=== PATIENT | male | born 1945 | race Caucasian/White ===

== ENCOUNTER 2018-05-31 09:14 | Observation (INO) | payer BC, MEDICARE ==
[2018-05-31] MEDS ORDERED: NS 0.9% 1000 ML* 1,000 ML IV ONE (09:47)
--- NOTE | 2018-05-31 10:00 | ED ---
Syncope/Near Syncope - HPI Summary HPI Summary: This patient is a 73 year old M presenting to [facility] accompanied by his with a chief complaint of a syncopal episode that occurred this morning at 0100. He states he does not recall the whole event but got up to use the bathroom. He is unsure how long he was out but he came to he was unsure why he was on the ground. He then went back to bed and believed he dreamed the episode occurred until his noticed the broken cabinet door in the morning that the patient must have hit as he fell. The patient rates the pain 2/10 in severity. Patient reports achy neck pain since yesterday; he had a hockey accident a week ago and has persistent left shoulder pain. He states he was seen by a medical provider and cleared without any imaging. He also c/o pain over the left eye with bruising that is new to this episode. Patient denies CP and SOB. Pt is not on blood thinners and his tetanus is UTD. - History Of Current Complaint Chief Complaint: EDSyncope Time Seen by Provider: 05/31/18 09:40 Hx Obtained From: Patient Onset/Duration: Resolved Timing: Intermittent Episode Lasting Context: Unwitnessed Activity At Onset: Other Associated Head Trauma: Yes Alleviating Factor(s): Spontaneous Resolution Associated Signs And Symptoms: Negative - SOB, CP - Allergies/Home Medications Allergies/Adverse Reactions: Allergies Allergy/AdvReac Type Severity Reaction Status Date / Time No Known Allergies Allergy Verified 05/31/18 09:21 Home Medications: Home Medications Albuterol HFA INHALER* [Ventolin HFA Inhaler*] 2 puff INH Q2HR PRN 05/31/18 [ History Confirmed 05/31/18] Fluoride (Sodium) [Prevident] 1 dose PO SEE INSTRUCTIONS 05/31/18 [History Confirmed 05/31/18] PMH/Surg Hx/FS Hx/Imm Hx Endocrine/Hematology History: Denies: Hx Diabetes Cardiovascular History: Denies: Hx Hypertension Respiratory History: Reports: Hx Asthma History: Denies: Hx Renal Disease Sensory History: Reports: Hx Hearing Problem Infectious Disease History: No Infectious Disease History: Denies: Traveled Outside the [place] in Last 30 Days - Family History Known Family History: Positive: Hypertension - Social History Lives: With Family Alcohol Use: None Substance Use Type: Reports: None Smoking Status (MU): Never Smoked Tobacco Review of Systems Positive: Other - fall Negative: Chest Pain Negative: Shortness Of Breath Positive: Myalgia - L neck and shoulder Positive: Bruising, Other - abrasion Positive: Syncope All Other Systems Reviewed And Are Negative: Yes Physical Exam - Summary Physical Exam Summary: GENERAL: Patient is a well-developed and nourished M who is lying comfortable in the stretcher. Patient is not in any acute respiratory distress. HEAD AND FACE: Normocephalic EYES: PERRLA, EOMI x 2. Periorbital ecchymosis on the left. There two abrasions to the fore head. One on the left and one on the right EARS: Hearing grossly intact. MOUTH: Oropharynx within normal limits. NECK: Supple, trachea is midline, no adenopathy, no JVD, no carotid bruit. CHEST: Symmetric, no tenderness at palpation LUNGS: Clear to auscultation bilaterally. No wheezing or crackles. CVS: Regular rate and rhythm, S1 and S2 present, no murmurs or gallops appreciated. ABDOMEN: Soft, non-tender. Bowel sounds are normal. No abdominal abnormal pulsations. EXTREMITIES: Full ROM in all major joints, no edema, no cyanosis or clubbing. NEURO: Alert and oriented x 3. No acute neurological deficits. Speech is normal and follows commands. SKIN: Dry and warm Neuro exam extended: Cranial nerves II-XII grossly intact, no dysmetria finger to nose, nml heel to chun Triage Information Reviewed: Yes Vital Signs On Initial Exam: Initial Vitals Temp Pulse Resp BP Pulse Ox 97.9 F 63 16 130/72 98 05/31/18 09:17 05/31/18 09:17 05/31/18 09:17 05/31/18 09:17 05/31/18 09:17 Vital Signs Reviewed: Yes - [place] Coma Scale Best Eye Response: 4 - Spontaneous Best Motor Response: 6 - Obeys Commands Best Verbal Response: 5 - Oriented Coma Scale Total: 15 Diagnostics - Vital Signs Vital Signs Temp Pulse Resp BP Pulse Ox 05/31/18 09:17 97.9 F 63 16 130/72 98 - Laboratory Result Diagrams: 05/31/18 10:00 05/31/18 10:00 Lab Statement: Any lab studies that have been ordered have been reviewed, and results considered in the medical decision making process. - Radiology CXR Radiology Interpretation Completed By: Radiologist Summary of Radiographic Findings: no active cardiopulmonary disease. ED physician has reviewed this radiology report. Shoulde Xray Radiology Interpretation Completed By: Radiologist Summary of Radiographic Findings: OSTEOARTHRITIS. NO ACUTE OSSEOUS INJURY. IF SYMPTOMS PERSIST, RECOMMEND REPEAT IMAGING. ED physician has reviewed this radiology report. Shoulder Xray Radiology Interpretation Completed By: Radiologist Summary of Radiographic Findings: OSTEOARTHRITIS. NO ACUTE OSSEOUS INJURY. IF SYMPTOMS PERSIST, RECOMMEND REPEAT IMAGING. ED physician has reviewed this radiology report. - CT CT Brain CT Interpretation Completed By: Radiologist Summary of CT Findings: NO ACUTE INTRACRANIAL PATHOLOGY. ED physician has reviewed this radiology report. CT Cspine CT Interpretation Completed By: Radiologist Summary of CT Findings: 1. NO EVIDENCE FOR FRACTURE. 2. MILD RETROLISTHESIS AT THE C4-C5 LEVEL WHICH IS LIKELY DEGENERATIVE IN ORIGIN. 3. MILD TO MODERATE CERVICAL SPONDYLOSIS. ED physician has reviewed this radiology report. - EKG 1004 Cardiac Rate: Bradycardia EKG Rhythm: Sinus Bradycardia - at 55 BPM Summary of EKG Findings: early R wave transition in V2 Course/Dx Assessment/Plan: This patient is a 73 year old M presenting to [facility] accompanied by his with a chief complaint of a syncopal episode that occurred this morning at 0100. An EKG reveals megan 55 BPM early r wave transition in V2 1004. CXR reveals, per radiologist, no active cardiopulmonary disease. Shoulder Xray shows, OSTEOARTHRITIS. NO ACUTE OSSEOUS INJURY. IF SYMPTOMS PERSIST, RECOMMEND REPEAT IMAGING. CT Brain shows, NO ACUTE INTRACRANIAL PATHOLOGY. CT C-spine shows, per radiologist, 1. NO EVIDENCE FOR FRACTURE. 2. MILD RETROLISTHESIS AT THE C4-C5 LEVEL WHICH IS LIKELY DEGENERATIVE IN ORIGIN. 3. MILD TO MODERATE CERVICAL SPONDYLOSIS. ED physician has reviewed this radiology report. Bloodwork showed TSH of 34. Patient will be admitted for syncope work up. We discussed patient care with Dr Stern and she has accepted the patient for admission. The patient is agreeable with this plan. - Diagnoses Provider Diagnoses: Syncope - Physician Notifications Discussed Care of Patient With: Adriana Stern Time Discussed With Above Provider: 12:39 Instructed by Provider To: Admit As Inpatient Discharge - Sign-Out/Discharge Documenting (check all that apply): Patient Departure - Discharge Plan Condition: Stable Disposition: ADMITTED TO [facility] - Billing Disposition and Condition Condition: STABLE Disposition: Admitted to [facility] - Attestation Statements Document Initiated by Scribe: Yes Documenting Scribe: Aquilino Zhou Provider For Whom Felipaibe is Documenting (Include Credential): Reddy Up MD Scribe Attestation: IAquilino , scribed for Reddy Up MD on 05/31/18 at 1725. Scribe Documentation Reviewed: Yes Provider Attestation: The documentation as recorded by the Aquilino suarez accurately reflects the service I personally performed and the decisions made by me, Reddy Up MD Status of Scribe Document: Viewed
[2018-05-31 10:07] LABS: ABS Basophils 0 10^3/ul (0-0.2); ABS Eosinophils 0.5 10^3/ul (0-0.6); ABS Lymphocytes 1.2 10^3/ul (1.0-4.8); ABS Monocytes 0.9 10^3/ul (0-0.8); ABS Neutrophils 4.9 10^3/ul (1.5-7.7); ABS Nucleated RBC 0 10^3/ul; Eosinophil % 6.1 %; Hematocrit 43 % (42-52); Hemoglobin 14.8 g/dl (14.0-18.0); Lymphocyte % 16.4 %; Mean Corpuscular HGB Conc 34 g/dl (31-36); Mean Corpuscular Hemoglobin 32 pg (27-31); Mean Corpuscular Volume 92 fL (80-94); Mean Platelet Volume 7.4 fL (7.4-10.4); Nucleated Red Blood Cells % 0; Platelet Count 243 10^3/ul (150-450); Red Blood Count 4.66 10^6/ul (4.00-5.40); Red Cell Distribution Width 14 % (10.5-15); White Blood Count 7.6 10^3/ul (3.5-10.8)
[2018-05-31 10:18] LABS: INR 0.96 (0.77-1.02)
[2018-05-31 10:27] LABS: EGFR Non-African American 73.5 (>60)
[2018-05-31 13:22] LABS: Urine Appearance Clear; Urine Blood Negative (Negative); Urine Color Yellow; Urine Ketones Trace (Negative); Urine Protein Negative (Negative); Urine Specific Gravity 1.011 (1.010-1.030); Urine Urobilinogen Negative (Negative)
[2018-05-31] MEDS ORDERED: Acetaminophen TAB* 325 MG PO PRN (14:19)
[2018-05-31] MEDS ORDERED: Enoxaparin(*) 40 MG/0.4 ML SYR SUBCUT SCH (15:00)
--- NOTE | 2018-05-31 15:50 | ECHO ---
Patient: JIE VEGA [facility] Rec#: [id number] : 1945 Date: 05/31/2018 Age: 73y Height: 182 cm / 71.7 in Weight: 88.5 kg / 195.1 lbs Sex: M BSA: 2.1 Room#: [id number] Admit Date#: 05/31/2018 Type: Inpatient Referring: Maeve Reynolds Reading: Mikel Faulkner DO Executive Personal Assistant: Elizabeth Vazquez RDCS CC: Ed Grady MD Transthoracic Echocardiogram Indication: Syncope BP: 116/81 HR: 66 Rhythm: NSR Findings History: Asthma Technical Comments: The study quality is fair. Completed at 1545. Left Ventricle: The left ventricular chamber size is normal. Mild concentric left ventricular hypertrophy is observed. Global left ventricular wall motion and contractility are within normal limits. There is normal left ventricular systolic function. The estimated ejection fraction is 55-60%. There is no consistent Doppler evidence of clinically significant diastolic dysfunction. Left Atrium: The left atrial chamber size is normal. Right Ventricle: The right ventricular chamber size and systolic function are within normal limits. Right Atrium: The right atrium appears normal. The right atrium is mildly dilated. Aortic Valve: The aortic valve is trileaflet. The aortic valve leaflets are mildly thickened. There is aortic annular calcification.that is mild There is a trace of aortic regurgitation. There is no evidence of aortic stenosis. Mitral Valve: The mitral valve leaflets are mildly thickened. There is a trace of mitral regurgitation. There is no evidence of mitral stenosis. Tricuspid Valve: The tricuspid valve leaflets are normal. There is trace to mild tricuspid regurgitation. No pulmonary hypertension is noted. There is no tricuspid stenosis. Pulmonic Valve: The pulmonic valve appears normal. There is a trace pulmonic regurgitation. There is no pulmonic stenosis. Pericardium: There is no significant pericardial effusion. Aorta: There is no dilatation of the ascending aorta. There is no dilatation of the aortic arch. The aortic root is normal in size. Pulmonary Artery: The main pulmonary artery is not well visualized. Venous: The inferior vena cava appears normal in size. There is a greater than 50% respiratory change in the inferior vena cava dimension. Conclusions The left ventricular chamber size is normal. Mild concentric left ventricular hypertrophy is observed. Global left ventricular wall motion and contractility are within normal limits. There is normal left ventricular systolic function. The estimated ejection fraction is 55-60%. The left atrial chamber size is normal. The right ventricular chamber size and systolic function are within normal limits. No significant valvular abnormalities noted. None prior for comparison at time of interpretation Measurements Name Value Normal Range RVIDd (AP) 2D 3.3 cm (0.9 - 2.6) RVDdMajor (2D) 4.6 cm (2.2 - 4.4) IVSd (2D) 1.1 cm (0.6 - 1) LVPWd (2D) 1.1 cm (0.6 - 1) LVIDd (2D) 5.1 cm (3.6 - 5.4) LVIDs (2D) 3.1 cm - LV FS (2D) 39 % (25 - 45) Aortic Annulus 2.3 cm (1.4 - 2.6) Ao root diameter (2D) 3.1 cm (2.1 - 3.5) Ascending Ao 3.2 cm (2.1 - 3.4) Aortic arch 2.4 cm (1.8 - 3.4) LAd ISD 4CH 5.5 cm (2.9 - 5.3) LA ISD 4CH W 4.3 cm (2.5 - 4.5) Name Value Normal Range LA ESV BP (A/L) index 26 ml/m2 - Name Value Normal Range MV E-wave Vmax 0.7 m/sec - MV deceleration time 211 msec - MV A-wave Vmax 0.5 m/sec - MV E:A ratio 1.3 ratio - LV septal e' Vmax 0.07 m/sec - LV lateral e' Vmax 0.1 m/sec - LV E:e' septal ratio 10 ratio - LV E:e' lateral ratio 7 ratio - Name Value Normal Range AV Vmax 1.3 m/sec - AV VTI 27.1 cm - AV peak gradient 7 mmHg - AV mean gradient 4 mmHg - LVOT Vmax 1.1 m/sec - LVOT VTI 25 cm - LVOT peak gradient 5 mmHg - LVOT mean gradient 2 mmHg - AMAN Vmax 0.6 m/sec - Name Value Normal Range TR Vmax 2.3 m/sec - TR peak gradient 21 mmHg - RAP 3 mmHg - RVSP 24 mmHg - IVC diameter 2 cm - Name Value Normal Range PV Vmax 0.8 m/sec - PV peak gradient 3 mmHg -
--- NOTE | 2018-05-31 17:42 | HP ---
AMENDED REPORT NOW INCLUDES DESIGNATED COSIGNER CC: Dr. Grady * HISTORY AND PHYSICAL: DATE OF ADMISSION: 05/31/18 PROVIDER: Maeve Reynolds NP PRIMARY CARE PROVIDER: Dr. Grady. ATTENDING PHYSICIAN WHILE IN THE HOSPITAL: Dr. Adriana Stern * (dictated by Maeve Reynolds NP). CHIEF COMPLAINT: Syncope. HISTORY OF PRESENT ILLNESS: Mr. Gallagher is a 73-year-old male with a history of asthma, sleep apnea and hypothyroid, not currently taking medication, who presented to the emergency room after a syncopal episode at home. The patient states that he woke up at approximately 1 a.m., got up to use the bathroom, he urinated, he turned to wash his hands in the sink and that is last he remembers. When he came too he was on the ground. He is unsure how long he was on the ground, but when he came to, not sure if he was sitting or lying on the floor. He states that when he came to, he felt in his normal state. He had no dizziness. No chest pain or shortness of breath. He reports that he stood up and felt fine and went back to bed and went back to sleep. He has had no further complaints this morning. No lightheadedness or dizziness. Denies any weakness on one side. Denies any facial droop, slurred speech, or any other concerning symptoms. Given his syncopal episode, he presented to the emergency room for further evaluation. The patient and both report that when he did fall he did break a cabinet door. The patient denies any headaches. Denies any fever or chills. Denies any nausea, vomiting, or diarrhea. Denies any hemoptysis or shortness of breath. Denies any cough. Denies any gross hematuria or dysuria. Denies any focal weakness or sensory loss. He denies any black or tarry stools. Denies any palpitations, lightheadedness, or dizziness. Due to his syncopal episode, we were asked to see and evaluate him for admission. PAST MEDICAL HISTORY: Significant for: 1. Hypothyroid. 2. Asthma. 3. Sleep apnea, uses CPAP at home. PAST SURGICAL HISTORY: Tonsillectomy. HOME MEDICATIONS: The patient has no prescribed medications. He uses over-the - counter: 1. Vitamins/omega-3. 2. Vitamin B12. 3. Ginkgo biloba. 4. Folic acid 400 mg. 5. Prevagen. 6. Vitamin C. 7. Cognium 8. Healthy Brain multivitamin He reports that he is not taking Advair at home. ALLERGIES: No known drug allergies. FAMILY HISTORY: Mother with a history of valve replacement, [place] at around age 65. No reported history of diabetes. Father and brother with a history of prostate cancer. SOCIAL HISTORY: The patient denies any tobacco, alcohol, or illicit drug use. He is . Surrogate decision maker in the event he is unable to make his own decisions is his , Ira. Her number is [phone]. REVIEW OF SYSTEMS: There is no documented fever. There has been no loss of appetite. No chest pain. No edema. Denies any cough, congestion, or hemoptysis. Denies any nausea, vomiting, or diarrhea. Denies any abdominal pain. Denies any gross hematuria or dysuria. Denies any focal weakness or sensory loss. He does report syncopal episode. Eyes: No visual complaints. No dysphagia. No arthralgias or myalgias. No rashes or lesions. He does have an abrasion above the left eyebrow and ecchymosis to the left eyelid, some point tenderness on the left eyebrow. Denies any psychosis or anxiety. PHYSICAL EXAMINATION GENERAL: At this time, Mr. Gallagher is a 73-year-old male with past medical history significant for hypothyroidism and asthma, sleep apnea, uses CPAP at night, who presented to the emergency room after a syncopal episode early this a.m. The patient was found sitting on the stretcher in the emergency room. He does not appear to be in any acute distress. VITAL SIGNS: Blood pressure 108/60, heart rate was 68, O2 saturation 97%, respirations were 20, temperature 98.7. HEENT: Head is atraumatic, normocephalic. Eyes: EOMs are intact. Sclerae anicteric and not pale. Left upper eyelid with ecchymosis, small amount of swelling noted to the left eyebrow region and small abrasion above the left eyebrow. Oral mucosa is moist. No oropharyngeal erythema. NECK: Supple. LUNGS: Clear to auscultation bilaterally. No wheezes, rales, or rhonchi. CARDIAC: S1, S2. Regular rate and rhythm. No murmurs, rubs, or gallops. ABDOMEN: Soft and nontender. Bowel sounds are present x4. EXTREMITIES: Pulses are +2 bilaterally. He is able to move all 4 extremities with 5/5 strength. NEUROLOGIC: He is awake, alert, and oriented x3. Hand technical maintenance technician are equal. Tongue is midline. Speech is clear. Shoulder shrug is intact. Nxfbaj-wv-xwhe is intact. Guqv-cp-nwon is intact. No pronator drift is noted. Leg strength is equal. Sensation is intact. Cranial nerves II through XII are intact. No gross focal deficits are noted. SKIN: Intact. He does have ecchymosis to the left upper eyelid as well as the left shoulder region. Ecchymosis to the left shoulder is old, yellow in discoloration, healing. He reports an injury from playing floor hockey resulted in that bruising. DIAGNOSTIC STUDIES/LAB DATA: WBCs were 7.6, RBCs 4.66, hemoglobin was 14.8, hematocrit was 43, platelet count was 243. INR was 0.96. Sodium 137, potassium 4.4, chloride of 106, carbon dioxide was 27, anion gap was 4, BUN was 20, creatinine 1.00, lactic acid was 0.5. ASTs were 28, ALTs were 29, alkaline phosphatase was 57. Troponin 0.00 x2. His TSH is elevated at 34.45. His free T4 is 0.58. His total T3 is 95. Urine was within normal limits, pH was 7.0, specific gravity 1.011, urine ketones were trace. Electrocardiogram showed sinus bradycardia at a rate of 51. Chest x-ray showed no active cardiopulmonary disease. CT of the brain: No acute intracranial pathology. CT of the C-spine: No evidence for fracture. Mild retrolisthesis at C4-C5 level, which is likely degenerative in origin. Hboo-wq-ciyuxuqm cervical spondylosis. He had a shoulder x-ray: Osteoarthritis. No acute osseous injury. If symptoms persist, recommend repeat imaging. ASSESSMENT AND PLAN: Mr. Gallagher is a 73-year-old male, who presented to the emergency room after a syncopal episode at home. We were asked to see and evaluate him for admission. He will be admitted under observation for: 1. Syncope. At this time, syncopal episode is unclear of cause. The patient has no reported illnesses. He denies any palpitations. He denies any lightheadedness or dizziness prior to the episode. He has no recollection of falling. He did have a CT of the head and C-spine, which were within normal limits. At this time, we will continue to monitor him on telemetry for any arrhythmias. I will get an echocardiogram to evaluate for valvular cause of his syncopal episode. I will get orthostatic vital signs and treat as needed. He will be monitored on telemetry overnight. 2. Hypothyroidism. The patient used to take thyroid medication, but stopped taking this several years ago as his primary care provider was unsure if he truly had hypothyroid. His TSH is elevated at 34.45. I will start him on levothyroxine 25 mcg p.o. daily. He will need a repeat TSH in 6 to 8 weeks and titrate dosing as needed. 3. Sleep apnea. The patient should wear a CPAP machine at night. 4. Asthma. The patient reports he does not take his Advair or albuterol inhalers at home. He has not taken these he reports in a long period of time. I will not continue his inhalers at this time. His lung sounds are clear without wheezes at this time. 5. FEN: He can have a regular diet. 6. DVT prophylaxis: I will encourage ambulation. I will place him on Lovenox 40 mg subcu q.24 hours. 7. Code status: He is a full code. TIME SPENT: Time spent on this admission was 60 minutes, greater than half that time was spent accp-ob-dvhb with the patient obtaining my history and physical, the other half of that time was spent going over my plan of care and implementing my plan of care. I have discussed this with my attending, Dr. Adriana Stern; she is in agreement with my plan. MAEVE ARIE, MACHINIST APPRENTICE [id number]/[facility] #: [id number] LEILA
[2018-06-01] MEDS ORDERED: Levothyroxine TAB* 25 MCG TAB PO SCH (06:00)
[2018-06-01 07:41] VITALS: BP 125/70
[2018-06-01] MEDS ORDERED: Pneumococcal *Vac Polyvalent 0.5 ML VIAL IM ONE (09:00)
--- NOTE | 2018-06-02 07:57 | DS ---
CC: Dr. Grady * DISCHARGE SUMMARY: DATE OF ADMISSION: 05/31/18 DATE OF DISCHARGE: 06/01/18 PRIMARY CARE PROVIDER: Dr. Grady. DISCHARGE DIAGNOSES: 1. Syncope, likely orthostatic. 2. Hypothyroidism. SECONDARY DIAGNOSES: 1. History of obstructive sleep apnea. 2. Asthma. 3. Remote history of hypothyroidism. MEDICATIONS AT DISCHARGE: New medications include: 1. Synthroid 25 mcg daily. 2. Advair Diskus 100/50 one inhalation daily. 3. Albuterol inhaler on a p.r.n. basis. LABORATORY DATA AND STUDIES PERFORMED DURING THE HOSPITAL STAY: Include: On , white blood cell count of 7.6, hemoglobin of 14.8, hematocrit of 43, and platelets of 243. Sodium of 137, potassium 4.4, chloride 106, carbon dioxide 27 , BUN 20, creatinine 1.0. Liver function is unremarkable. Troponin continued to be in the range of 0 to 0.01 throughout the hospital stay. Cholesterol profile showed triglycerides of 79, cholesterol of 161, LDL of 94, and HDL of 50. TSH was 34.4 and free T4 of 0.5 and total T3 of 95. Urinalysis grossly unremarkable apart from trace of ketones. Transthoracic echocardiogram obtained on 05/31/18 showed EF of 55% to 60% with mild concentric LVH with normal left ventricular systolic function and no significant valvular abnormalities. Brain CT, impression, "no acute intracranial pathology." Portable chest x-ray, impression, "no active cardiopulmonary disease." C-spine CT, impression, "no evidence of fracture, mild retrolisthesis at the C4- C5 level, which is likely degenerative in origin. [id number] cervical spondylosis." Shoulder x-ray, impression, "osteoarthritis. No acute osseous injury. If symptoms persist, recommend repeat imaging." It was left shoulder. HOSPITALIZATION COURSE: Florian Gallagher is a 73-year-old male with no significant past medical history apart from remote hypothyroidism and asthma who is in a very good physical shape and who presented after an episode of syncope. For further details, please see history and physical dictated by Maeve Reynolds. The patient got up in the middle of the night and fell down on the way back from the bathroom. He lost consciousness and he does not remember falling. He collapsed on the bathroom cabinet door and "destroyed it." He was admitted to the patient for an overnight observation on environmental monitoring specialist bed. His telemetry showed mild bradycardia in the 50s when the patient is asleep, but otherwise no abnormalities and no arrhythmias. The patient's TSH was noted to be markedly elevated. The patient was started on Synthroid supplement. Transthoracic echocardiogram was unremarkable. We had a long discussion with the patient at discharge. It appears to be an episode related to orthostatic hypotension, although orthostatics when checked in the hospital were unremarkable. They were checked almost 12 hours after the incident. We had a long discussion about modifying the patient's behavior at night. The patient has to go downstairs to go to the bathroom and is thinking about fixing his an unfunctional bathroom next to his bedroom. He also was informed about trying to get up and change position when he is in the middle of the night slower and make sure that he does not get dizzy when it happens. The patient also was informed that if those episodes continue to recur, he may be candidate for implantable event monitor. The patient is recommended to follow up with Dr. Grady in approximately 4 to 6 days and repeat TSH level in approximately 4 to 6 weeks. PHYSICAL EXAM AT DISCHARGE: Unchanged from admission. [id number]/[facility] #: [id number] LEILA
== END 2018-06-01 11:58 | disposition home or self-care (01) ==
LOC: ED 09:14 → MEDTELE 14:19
PROVIDERS: ADMIT Internal Medicine; ATTEND Internal Medicine
DX: R55 Syncope and collapse (principal); E03.9 Hypothyroidism, unspecified; M47.892 Other spondylosis, cervical region; G47.33 Obstructive sleep apnea (adult) (pediatric); J45.909 Unspecified asthma, uncomplicated; M54.2 Cervicalgia
CPT/HCPCS: 36415; 70450; 71045; 72125; 80053; 80061; 81003; 83605; 83735; 84439; 84443; 84479; 84484; 85025; 85610; 85730; 90686; 90732; 93005; 93306; 99284; A9270-GY; G0378; J1650